=== PATIENT | male | born 2000 ===

== ENCOUNTER 2022-08-08 14:41 | Emergency (ER) | payer BC ==
[2022-08-08] MEDS ORDERED: LORazepam 2 MG/ML SDV IVPUSH ONE (15:01)
[2022-08-08] MEDS ORDERED: Sodium Chloride 0.9% 2.5 ML Syringe FLUSH PRN (15:01)
[2022-08-08] MEDS ORDERED: Sodium Chloride 0.9% 10 ML Syringe FLUSH PRN (15:01)
[2022-08-08] MEDS ORDERED: Sodium Chloride 0.9% 1,000 ML IV ONE (15:02)
[2022-08-08 15:54] LABS: CARBON DIOXIDE,CO2 27.9 mmol/L (21.0-32.0)
[2022-08-08] MEDS ORDERED: Ketorolac 30 MG/ML SDV IVPUSH ONE (16:50)
== END 2022-08-08 17:39 | disposition home or self-care (01) ==
LOC: MW.ED 14:41
DX: R07.9 Chest pain, unspecified (principal)
CPT/HCPCS: 36415; 71045; 80053; 80305; 84443; 84484; 85025; 85379; 93005; 96361; 96374; 96375; 99285; J1885; J2060; J3490; J7030